=== PATIENT | male | born 1935 | race African-American/Black ===

== ENCOUNTER 2025-03-10 09:23 | Inpatient (IN) | payer MEDICARE, MEDICAID ==
[~2025-03-10] VITALS: Ht 175.3 cm; Wt 112.5 kg
[~2025-03-10 09:23] MED LIST: ALBU90AE INH; ALLO300T2 MT; ATOR40TA70 MT; CLOP75TA33 MT; FURO40TA5 MT; HYDR-4009 MT; KETO15CR2 TP; MEMA10TA20 MT; MONT-39 MT; NALO12.52 MT; PANT40TA51 MT; SACU1TAB MT; TAMS-54 MT
[2025-03-10 10:40] LABS: HEMATOCRIT. 34.9 % (42.0-52.0); MEAN CORPUSCULAR HEMOGLOBIN 22.4 pg (28.0-32.0); MEAN CORPUSCULAR HGB CONC 31.5 g/dL (31.0-37.0); MEAN CORPUSCULAR VOLUME 71.2 fL (80.0-94.0); MEAN PLATELET VOLUME 9.4 fl (7.4-10.4); PLATELET 214 x1000/uL (130-400); WHITE BLOOD COUNT 4.9 x1000/uL (4.5-11.0)
[2025-03-10 10:56] LABS: DIFFERENTIAL COMMENT 1
[2025-03-10 11:02] LABS: TROPONIN I HIGH SENSITIVITY 10 ng/L (3.0-53)
[2025-03-10 12:00] VITALS: BP 101/61; PULSE 67; RESP 17; TEMP 36.2; O2SAT 100
[2025-03-10 12:19] LABS: ANISOCYTOSIS 2+; HYPOCHROMASIA 1+; PLATELET ESTIMATE NORMAL
[2025-03-10] MEDS ORDERED: IOHEXOL-300 100 ML BOTTLE ONE (13:21)
[2025-03-10 15:00] VITALS: BP 101/61; PULSE 67; RESP 17; RESP 18; TEMP 36.2; TEMP 36.3; O2SAT 97
[2025-03-10 15:40] LABS: CHLORIDE 104 mEq/L (98-107); POTASSIUM 4.1 mEq/L (3.5-5.1); SODIUM 137 mEq/L (136-145)
[2025-03-10 15:42] LABS: CALCIUM 9.4 mg/dL (8.7-10.4); CARBON DIOXIDE 24 mEq/L (21-32)
[2025-03-10 15:47] LABS: CREATININE 1.1 mg/dL (0.6-1.3); GLUCOSE 98 mg/dL (70-105); UREA NITROGEN BLOOD 16 mg/dL (9-23)
[2025-03-10 15:49] LABS: ALANINE AMINOTRANSFERASE 34 IU/L (10-49); ASPARTATE AMINOTRANSFERASE 28 IU/L (<34); BILIRUBIN DIRECT 0.1 mg/dL (<=3.0); BILIRUBIN TOTAL 0.3 mg/dL (0.1-1.0); TROPONIN I HIGH SENSITIVITY 9 ng/L (3.0-53)
[2025-03-10] MEDS ORDERED: DIPHENHYDRAMINE 50MG/ML VIAL IV PRN (16:15)
[2025-03-10] MEDS ORDERED: ONDANSETRON HCL 4MG/2ML INJ IV PRN (16:15)
[2025-03-10] MEDS ORDERED: ACETAMINOPHEN 325MG TABLET PO PRN (16:15)
[2025-03-10] MEDS ORDERED: CLONIDINE 0.1MG TABLET PO PRN (16:15)
[2025-03-10 16:25] VITALS: BP 96/50; PULSE 78; RESP 17; TEMP 36.4; O2SAT 100
[2025-03-10] MEDS: FERROUS SULFATE 325MG TABLET PO SCH (17:50)
[2025-03-10 20:00] VITALS: BP 106/57; PULSE 75; RESP 19; TEMP 36.4; O2SAT 98
[2025-03-10] MEDS: CARVEDILOL 3.125 MG TABLET PO SCH (20:48)
[2025-03-10] MEDS: APIXABAN 5 MG TABLET PO SCH (20:48)
[2025-03-10] MEDS: PANTOPRAZOLE 40MG DR TABLET PO SCH (20:48)
[2025-03-10] MEDS: ATORVASTATIN CALCIUM 40MG TABLET PO SCH (20:48)
[2025-03-10] MEDS: ACETAMINOPHEN 325MG TABLET PO PRN (20:59)
[2025-03-10] MEDS: ZOLPIDEM TARTRATE 5MG TABLET PO PRN (20:59)
[2025-03-10] MEDS: SODIUM CHLORIDE 0.9% 3ML FLUSH IVF SCH (21:00)
[2025-03-10] MEDS: DILTIAZEM HCL 30MG TABLET PO SCH (21:00)
[2025-03-11] VITALS (9 sets, daily range): BP systolic 102–131; BP diastolic 56–70; PULSE 72–89; RESP 17–20; TEMP 36.1–37.1; O2SAT 95–100
[2025-03-11] MEDS: BUDESONIDE 0.5MG/2ML NEB HHN SCH (01:28)
[2025-03-11 06:52] LABS: CHLORIDE 105 mEq/L (98-107); POTASSIUM 4.1 mEq/L (3.5-5.1); SODIUM 139 mEq/L (136-145)
[2025-03-11 06:53] LABS: CALCIUM 9.7 mg/dL (8.7-10.4); CARBON DIOXIDE 26 mEq/L (21-32)
[2025-03-11 06:57] LABS: HEMOGLOBIN. 11.6 g/dL (14.0-18.0); MEAN CORPUSCULAR HEMOGLOBIN 22.1 pg (28.0-32.0); MEAN CORPUSCULAR HGB CONC 31.4 g/dL (31.0-37.0); MEAN CORPUSCULAR VOLUME 70.5 fL (80.0-94.0); MEAN PLATELET VOLUME 9.9 fl (7.4-10.4); PLATELET 220 x1000/uL (130-400); RED BLOOD CELL COUNT 5.25 mill/uL (4.7-6.1); WHITE BLOOD COUNT 5.1 x1000/uL (4.5-11.0)
[2025-03-11 06:58] LABS: CREATININE 1.1 mg/dL (0.6-1.3); GLUCOSE 102 mg/dL (70-105); UREA NITROGEN BLOOD 16 mg/dL (9-23)
[2025-03-11 07:00] LABS: PHOSPHORUS 2.9 mg/dL (2.5-4.9)
[2025-03-11 07:22] LABS: DIFFERENTIAL COMMENT 1
[2025-03-11] MEDS: TAMSULOSIN HCL 0.4MG SR CAPSULE PO SCH (09:49)
[2025-03-11] MEDS: ALLOPURINOL 300 MG TABLET PO SCH (09:50)
[2025-03-11 15:55] LABS: ANISOCYTOSIS 2+; PLATELET ESTIMATE NORMAL
[2025-03-11 15:56] LABS: HYPOCHROMASIA 1+; MICROCYTOSIS 2+
[2025-03-11] MEDS: IPRATROPIUM/ALBUTEROL 0.5-3(2.5)MG/3ML NEB HHN PRN (21:57)
[2025-03-12] VITALS: BP 102/56; PULSE 78; RESP 19; TEMP 36.4; O2SAT 100
[2025-03-12] MEDS: MAGNESIUM/ALUMINUM HYDROXIDE/SIMETHICONE 30ML UDC PO PRN (01:48)
[2025-03-12 04:00] VITALS: BP 112/62; PULSE 80; RESP 18; TEMP 36.8; O2SAT 99
[2025-03-12 07:55] VITALS: PULSE 71; RESP 18
[2025-03-12 08:00] VITALS: BP 135/69; PULSE 79; RESP 17; TEMP 36.4; O2SAT 99
[2025-03-12] MEDS: SENNOSIDES 8.6MG TABLET PO PRN (08:42)
[2025-03-12 12:00] VITALS: BP 117/54; PULSE 79; RESP 17; TEMP 36.5; O2SAT 97
[2025-03-12 14:11] VITALS: BP 117/54; PULSE 79; TEMP 97.7; O2SAT 97
== END 2025-03-12 15:10 | disposition home or self-care (01) | DRG 74 ==
LOC: ER 09:23 → EDBEDREQ 09:56 → 6WST 12:12 → EDBEDREQ 12:14 → ENRESERV 12:28
PROVIDERS: ADMIT Internal Medicine; ATTEND Internal Medicine
DX: G90.89 Other disorders of autonomic nervous system (principal); E11.9 Type 2 diabetes mellitus without complications; E78.00 Pure hypercholesterolemia, unspecified; F17.200 Nicotine dependence, unspecified, uncomplicated; I11.0 Hypertensive heart disease with heart failure; I25.10 Atherosclerotic heart disease of native coronary artery without angina pectoris; I48.0 Paroxysmal atrial fibrillation; I50.9 Heart failure, unspecified; J44.9 Chronic obstructive pulmonary disease, unspecified; M10.9 Gout, unspecified; K59.00 Constipation, unspecified; K76.0 Fatty (change of) liver, not elsewhere classified; N40.0 Benign prostatic hyperplasia without lower urinary tract symptoms; Z79.01 Long term (current) use of anticoagulants; Z95.0 Presence of cardiac pacemaker; Z95.2 Presence of prosthetic heart valve
CPT/HCPCS: 36415; 71045; 74177; 80048; 80076; 82270; 83735; 84100; 84484; 85025; 93005; 94070; 94640; 94664; 99291; J7626; Q9967